=== PATIENT | male | born 1975 | race Two or more races ===

== ENCOUNTER 2024-06-08 22:26 | Emergency (ER) | payer OTHER ==
[~2024-06-08] VITALS: Ht 177.8 cm; Wt 109.0 kg
[2024-06-08 22:29] VITALS: BP 142/75; PULSE 102; RESP 15; O2SAT 95
[2024-06-08] MEDS ORDERED: METF-438 PO (22:59)
[2024-06-08] MEDS: metFORMIN 500mg tablet PO ONE (23:09)
[2024-06-08 23:11] VITALS: TEMP 98.6
== END 2024-06-08 23:14 | disposition home or self-care (01) ==
LOC: ER 22:27
DX: E11.65 Type 2 diabetes mellitus with hyperglycemia (principal); Z76.0 Encounter for issue of repeat prescription
CPT/HCPCS: 82948; 99283